=== PATIENT | female | born 1960 | race Caucasian/White ===

== ENCOUNTER 2022-08-15 09:00 | Outpatient (CLI) | payer OTHER, SELFPAY ==
[2022-08-15 14:04] LABS: Albumin* 4.1 g/dL (3.3-5.0); Chloride* 107 mmol/L (96-114); Potassium* 4.5 mmol/L (3.6-5.1); Sodium* 140 mmol/L (135-149)
[2022-08-15 14:06] LABS: Carbon Dioxide* 30 mmol/L (20-32); Cholesterol* 223 mg/dL (90-199); Creatinine* 0.9 mg/dL (0.5-1.5); Estimated Glomerular Filt Rate 73 ml/min
[2022-08-15 14:07] LABS: Alanine Aminotransferase* 21 U/L (4-35); Alkaline Phosphatase* 94 U/L (40-150); Aspartate Amino Transferase* 23 U/L (12-35); Bilirubin Total* 0.5 mg/dL (0.1-1.5); Blood Urea Nitrogen* 17 mg/dL (7-30); Calcium* 8.8 mg/dL (8.4-10.6); Glucose* 91 mg/dL (60-115); HDL Cholesterol* 79 mg/dL (>=50); LDL Cholesterol Calculated 133 mg/dL (<100); Total Protein* 6.7 g/dL (6.0-8.3); Triglycerides* 57 mg/dL (40-149)
== END 2022-08-15 09:01 | disposition home or self-care (01) ==
PROVIDERS: PCP Physician Assistant Medical; Visit Provider Physician Assistant Medical
DX: Z00.00 Encounter for general adult medical examination without abnormal findings (principal); F41.8 Other specified anxiety disorders; Z13.6 Encounter for screening for cardiovascular disorders; Z13.29 Encounter for screening for other suspected endocrine disorder
CPT/HCPCS: 80053; 80061; 84443

== ENCOUNTER 2024-12-28 07:57 | Outpatient (CLI) | payer OTHER, SELFPAY | END 2024-12-28 07:58 | disposition home or self-care (01) | LOC: NFLDREF 12-30 15:01 | PROVIDERS: PCP Family Medicine; Referring Provider Family Medicine; Visit Provider Family Medicine | DX: Z00.00 Encounter for general adult medical examination without abnormal findings (principal); F41.8 Other specified anxiety disorders; K59.00 Constipation, unspecified; Z13.6 Encounter for screening for cardiovascular disorders; Z13.21 Encounter for screening for nutritional disorder; Z11.59 Encounter for screening for other viral diseases | CPT/HCPCS: 80053; 80061; 82306; 84443; 86803 ==